=== PATIENT | female | born 1985 | race African-American/Black ===

== ENCOUNTER → 2019-08-19 | Outpatient (CLI) | payer MEDICAID | END | disposition home or self-care (01) | LOC: LAB 10:02 | PROVIDERS: ATTEND Obstetrics & Gynecology | DX: Z01.818 Encounter for other preprocedural examination (principal); Z11.59 Encounter for screening for other viral diseases | CPT/HCPCS: U0003-CS ==

== ENCOUNTER 2019-08-20 08:25 | Inpatient (IN) | payer MEDICAID ==
[~2019-08-20] VITALS: Ht 167.6 cm; Wt 79.8 kg
[2019-08-20] MEDS ORDERED: DEXT 5%/LR + PITOCIN 20UNITS/L 1,000 ML IV SCH (08:38)
[2019-08-20] MEDS ORDERED: NALOXONE HCL 0.4 MG/ML 1ML VIAL IM PRN (08:45)
[2019-08-20] MEDS ORDERED: METHYLERGONOVINE MALEATE 0.2 MG/ML IM PRN (08:45)
[2019-08-20] MEDS ORDERED: CARBOPROST TROMETHAMINE 250 MCG/ML AMPUL IM PRN (08:45)
[2019-08-20] MEDS ORDERED: LACTATED RINGERS 1,000 ML IV SCH (09:00)
[2019-08-20] MEDS ORDERED: CITRIC ACID/SODIUM CITRATE SOLN 30ML UDC PO SCH (09:00)
[2019-08-20] MEDS ORDERED: CEFAZOLIN SODIUM 1000MG/VIAL ONE (09:04)
[2019-08-20] MEDS ORDERED: OXYTOCIN 10 UNITS/ML 1ML ONE ×2 (09:04→11:54)
[2019-08-20] MEDS ORDERED: PHENYLEPHRINE HCL 10 MG/ML 1ML (IV VIAL) IV ONE (09:04)
[2019-08-20] MEDS ORDERED: EPHEDRINE SULFATE 50MG/ML VIAL ONE (09:04)
[2019-08-20] MEDS ORDERED: MORPHINE SULFATE/PF 1MG/ML 10ML AMP ONE (09:04)
[2019-08-20] MEDS ORDERED: FENTANYL CITRATE/PF 50MCG/ML 2ML VIAL ONE (09:04)
[2019-08-20] MEDS ORDERED: ONDANSETRON HCL 4MG/2ML INJ ONE (09:04)
[2019-08-20] MEDS ORDERED: GLYCOPYRROLATE 0.2 MG/ML 2ML VIAL ONE (09:04)
[2019-08-20 10:01] LABS: BASOPHILS % 0.6 % (0.0-2.0); EOSINOPHILS % 0.8 % (0.0-5.0); HEMATOCRIT. 36.1 % (36.0-48.0); HEMOGLOBIN. 12.3 g/dL (12.0-16.0); LYMPHOCYTES % 35.5 % (20.0-50.0); MEAN CORPUSCULAR HEMOGLOBIN 28.1 pg (28.0-32.0); MEAN CORPUSCULAR VOLUME 82.7 fL (81.0-99.0); MEAN PLATELET VOLUME 11.2 fl (7.4-10.4); NEUTROPHILS % 52.1 % (40.0-76.0); PLATELET 128 x1000/uL (130-400); RED BLOOD CELL COUNT 4.37 mill/uL (4.2-5.4); RED CELL DISTRIBUTION WIDTH 14.5 % (11.6-14.6)
[2019-08-20 10:06] LABS: INR 0.9; PARTIAL THROMBOPLASTIN TIME 26.6 sec (23.4-31.0); PROTHROMBIN TIME 9.9 sec (9.6-11.0)
[2019-08-20 10:07] LABS: CLARITY URINE TURBID (CLEAR); COLOR URINE YELLOW (YELLOW); KETONES URINE NEGATIVE (NEGATIVE); LEUKOCYTE ESTERASE URINE 3+ (NEGATIVE); NITRITE URINE NEGATIVE (NEGATIVE); OCCULT BLOOD URINE 1+ (NEGATIVE); PH URINE 6.5 (4.5-8.0); PROTEIN URINE 1+ (NEGATIVE); SPECIFIC GRAVITY URINE 1.017 (1.005-1.030)
[2019-08-20 10:34] LABS: *AMPHETAMINES SCREEN URINE NEGATIVE (NEGATIVE); *BARBITURATES SCREEN URINE NEGATIVE (NEGATIVE); *BENZODIAZEPINES SCREEN URINE NEGATIVE (NEGATIVE); *COCAINE SCREEN URINE NEGATIVE (NEGATIVE); METHADONE URINE SCREEN NEGATIVE (NEGATIVE)
[2019-08-20 10:35] LABS: CANNABINOID URINE SCREEN NEGATIVE (NEGATIVE); OPIATES URINE SCREEN NEGATIVE (NEGATIVE); PHENCYCLIDINE URINE SCREEN NEGATIVE (NEGATIVE)
[2019-08-20] MEDS ORDERED: DIPHENHYDRAMINE 50MG/ML VIAL ONE (11:51)
[2019-08-20] MEDS ORDERED: KETOROLAC 60MG/2ML VIAL IM ONE (11:54)
[2019-08-20] MEDS ORDERED: ESMOLOL HCL 10MG/ML 10ML VIAL IV ONE (12:01)
[2019-08-20] MEDS ORDERED: METOPROLOL TARTRATE 5MG/5ML VIAL IV ONE (12:12)
[2019-08-20 12:38] LABS: CHLORIDE 109 mEq/L (98-107)
[2019-08-20 12:43] LABS: D-DIMER 2.9 mg/L FEU (<0.50)
[2019-08-20] MEDS ORDERED: HYDRALAZINE 20MG/ML VIAL IV PRN ×3 (12:45)
[2019-08-20] MEDS ORDERED: LABETALOL HCL 5MG/ML VIAL 20ML IV PRN ×2 (12:45)
[2019-08-20 12:59] LABS: HEPATITIS B SURFACE ANTIGEN NEGATIVE
[2019-08-20] MEDS ORDERED: MAGNESIUM 20 G PREMIX (L & D) 500 ML IV SCH (13:00)
[2019-08-20 15:00] VITALS: BP 103/53
[2019-08-20 15:30] VITALS: BP 91/61
[2019-08-20] MEDS ORDERED: BUTORPHANOL TARTRATE 2 MG/ML VIAL IV PRN (15:30)
[2019-08-20] MEDS ORDERED: NALOXONE HCL 0.4 MG/ML 1ML VIAL IV PRN (15:30)
[2019-08-20] MEDS ORDERED: DIPHENHYDRAMINE 50MG/ML VIAL IV PRN (15:30)
[2019-08-20 16:00] VITALS: BP 113/77
[2019-08-20 16:34] LABS: BASOPHILS % 0.4 % (0.0-2.0); EOSINOPHILS % 0.3 % (0.0-5.0); HEMATOCRIT. 34.2 % (36.0-48.0); HEMOGLOBIN. 11.3 g/dL (12.0-16.0); LYMPHOCYTES % 17.4 % (20.0-50.0); MEAN CORPUSCULAR HEMOGLOBIN 27.4 pg (28.0-32.0); MEAN PLATELET VOLUME 10.8 fl (7.4-10.4); MONOCYTES % 6.8 % (2.0-8.0); NEUTROPHILS % 75.1 % (40.0-76.0); PLATELET 120 x1000/uL (130-400); RED BLOOD CELL COUNT 4.12 mill/uL (4.2-5.4); RED CELL DISTRIBUTION WIDTH 14.5 % (11.6-14.6)
[2019-08-20 16:46] LABS: CHLORIDE 107 mEq/L (98-107)
[2019-08-20] MEDS: KETOROLAC 30MG/ML VIAL IV SCH (17:42)
[2019-08-20 20:00] VITALS: BP 128/76
[2019-08-21] VITALS: BP 118/69
[2019-08-21] MEDS: KETOROLAC 30MG/ML VIAL IV SCH ×2 (00:16→06:05)
[2019-08-21 04:00] VITALS: BP 118/75
[2019-08-21 06:45] VITALS: BP 129/76
[2019-08-21 08:00] VITALS: BP 119/82
[2019-08-21] MEDS: IBUPROFEN 800MG TABLET PO PRN ×2 (15:42→21:52)
[2019-08-21 16:00] VITALS: BP 133/87
[2019-08-21 20:40] VITALS: BP 113/74
[2019-08-21] MEDS ORDERED: BISACODYL 10MG SUPP PR PRN (22:00)
[2019-08-22] VITALS: BP 121/82
[2019-08-22 04:00] VITALS: BP 146/83
[2019-08-22] MEDS: IBUPROFEN 800MG TABLET PO PRN ×2 (04:21→11:52)
[2019-08-22 08:15] VITALS: BP 129/69
== END 2019-08-22 14:25 | disposition home or self-care (01) | DRG 540 ==
LOC: 8 EST LDRP 08:25 → 8EST 14:45
PROVIDERS: ADMIT Obstetrics & Gynecology; ATTEND Obstetrics & Gynecology
PROC: 10D00Z1 Extraction of Products of Conception, Low, Open Approach (ICD-10-PCS; principal; 2019-08-21)
DX: O30.043 Twin pregnancy, dichorionic/diamniotic, third trimester (principal); Z37.2 Twins, both liveborn; O13.4 Gestational [pregnancy-induced] hypertension without significant proteinuria, complicating childbirth; Z3A.38 38 weeks gestation of pregnancy; O32.1XX1 Maternal care for breech presentation, fetus 1
CPT/HCPCS: 36415; 80053; 80305; 81003; 83735; 84550; 85025; 85379; 85384; 86592; 86703; 86762; 86850; 86900; 86920; 87340; 88307; J0360; J0690; J1200; J1885; J2274; J2370; J2405; J2590; J3010; J3475; J3490; J7120

== ENCOUNTER 2024-02-03 01:21 | Emergency (ER) | payer SELFPAY ==
[~2024-02-03] VITALS: Ht 167.6 cm; Wt 71.2 kg
[2024-02-03 01:25] VITALS: O2SAT 100
[2024-02-03 01:34] VITALS: BP 163/118; PULSE 112; TEMP 98.3; O2SAT 99
[2024-02-03] MEDS ORDERED: CYCL10TA21 MT (02:05)
[2024-02-03] MEDS: CYCLOBENZAPRINE 10MG TABLET PO ONE (02:05)
[2024-02-03] MEDS ORDERED: NAPR-1176 MT (02:05)
[2024-02-03] MEDS: KETOROLAC 30MG/ML VIAL IM ONE (02:05)
[2024-02-03 02:20] VITALS: RESP 18
== END 2024-02-03 02:20 | disposition home or self-care (01) ==
LOC: ER 01:21
DX: M25.511 Pain in right shoulder (principal); I10 Essential (primary) hypertension; F41.9 Anxiety disorder, unspecified; Z98.890 Other specified postprocedural states
CPT/HCPCS: 81025; 96372; 99283; J1885; Z7610

== ENCOUNTER 2024-11-12 21:29 | Emergency (ER) | payer MEDICAID ==
[~2024-11-12] VITALS: Ht 172.7 cm; Wt 68.9 kg
[~2024-11-12 21:29] MED LIST: CYCL10TA21 MT; NAPR-1176 MT
[2024-11-12 21:40] VITALS: O2SAT 98
[2024-11-12 22:25] VITALS: BP 151/104; PULSE 91; RESP 16; TEMP 36.9; O2SAT 100
== END 2024-11-13 03:00 | disposition left against medical advice (07) ==
LOC: ER 21:29
DX: M79.601 Pain in right arm (principal); F41.9 Anxiety disorder, unspecified; I10 Essential (primary) hypertension; Z53.21 Procedure and treatment not carried out due to patient leaving prior to being seen by health care provider